=== PATIENT | male | born 1945 | race Caucasian/White ===

== ENCOUNTER 2018-07-13 08:31 | Day surgery (SDC) | payer OTHER ==
[2018-07-10 12:58] VITALS: BMI 20.1
[2018-07-13 09:00] LABS: #Eosinphils 0.3 thou/uL (0.0-0.7); #Lymphocytes 0.6 thou/uL (1.20-3.40); #Monocytes 0.7 thou/uL (0.11-0.59); #Neutrophils 3.3 thou/uL (1.40-6.50); %Basophils 0.9 % (0.0-1.0); %Eosinophils 5.7 % (0.0-10.0); %Lymphocytes 12.5 % (21.0-51.0); %Monocytes 14.4 % (0.0-10.0); %Neutrophils 66.6 % (42.0-75.0); Hemoglobin 15.5 g/dL (14.0-18.0); Mean Corpuscular HGB CONC 34.3 g/dL (32.0-36.0); Mean Corpuscular Hemoglobin 36.5 pg (27.0-31.0); Mean Platelet Volume 7.2 fL (7.4-10.4); Platelet Count 240 thou/uL (130-400); RBC Distribution Width 10.7 % (11.5-14.5); Red Blood Cell (RBC) Count 4.26 mill/uL (4.70-6.10); White Blood Cell (WBC) Count 4.9 thou/uL (4.8-10.8)
[2018-07-13] MEDS ORDERED: Prevnar 13-Val Conj/PF 0.5 ML SYRINGE IM ONE (09:00)
[2018-07-13 09:03] LABS: INR-International Normal Ratio 0.9; PTT 38.9 SEC (22.9-36.1); Prothrombin Time 12.6 SEC (12.0-14.7)
[2018-07-13] MEDS ORDERED: Midazolam HCl 2 mg/2 ml Vial ONE (09:17)
[2018-07-13] MEDS ORDERED: Fentanyl 100 MCG/2 ML VIAL ONE (09:17)
[2018-07-16] MEDS ORDERED: Sodium Bicarbonate 2.5 MEQ/5 ML VIAL ONE (09:56)
[2018-07-16] MEDS ORDERED: Midazolam HCl 2 mg/2 ml Vial ONE (09:56)
[2018-07-16] MEDS ORDERED: Fentanyl 100 MCG/2 ML VIAL ONE (09:56)
== END 2018-07-13 10:30 | disposition home or self-care (01) ==
LOC: CT 08:31
DX: K76.9 Liver disease, unspecified (principal); Z53.9 Procedure and treatment not carried out, unspecified reason
CPT/HCPCS: 36415; 85025; 85610; 85730; J2250; J3010

== ENCOUNTER → 2018-07-16 | Day surgery (SDC) | payer OTHER ==
[2018-07-16 09:48] VITALS: BP 144/84; TEMP 98.1
--- NOTE | 2018-07-16 13:13 | CT ---
CT GUIDED LUNG BIOPSY: CLINICAL HISTORY: Lung mass/lung nodule, left upper lobe. PROCEDURE: Informed consent was obtained from the patient. The patient was escorted to the procedure suite and placed in a supine position. The left upper lobe pulmonary nodule of interest was localized with CT imaging. The patient's ventral left chest was marked and prepped and draped in the standard sterile fashion. Topical anesthesia was achieved. The patient received conscious sedation via the radiology nurse, Lisseth Brennan, and was monitored in stable condition throughout the duration of the exam.. After standard sterile prepping and draping and topical anesthesia was achieved, a small skin incisio n was made at the ventral left chest through which a 20-gauge needle was associated trocar was advanc ed to the leading edge of the nodule. Biopsy was performed which did reveal a core specimen which wa s submitted to pathology. Subsequent to the 1st core biopsy, the pneumothorax did occur which preclu ded additional biopsy attempts of the nodule. Therefore, the needle was removed. The patient was tr ansferred to radiology holding continuously monitored and in stable condition. IMPRESSION: Technically successful percutaneous CT-guided biopsy of left upper lobe pulmonary nodule. Pathology results are pending. POS: [facility]
--- NOTE | 2018-07-16 13:20 | RAD ---
2 VIEW CHEST INSPIRATION/EXPIRATION VIEWS: Date: 07/16/18 CLINICAL HISTORY: Status post left lung biopsy. FINDINGS: There is a small volume left pneumothorax status post left lung biopsy. No shift of midline structure s. IMPRESSION: Small volume left pneumothorax status post left lung biopsy. POS: [facility]
--- NOTE | 2018-07-16 14:23 | RAD ---
TWO VIEW CHEST: (INSPIRATORY AND EXPIRATORY SERIES) CLINICAL HISTORY: Pneumothorax status post left lung biopsy, followup. FINDINGS: There has been slight interval decrease in volume of left-side pneumothorax with a small volume remai mario at the inferolateral left chest. No shift of midline structures. IMPRESSION: Mild residual left pneumothorax is present, which has decreased from the recent exam. POS: [facility]
== END ==
LOC: CT 08:55
PROC: 0BBG3ZX Excision of Left Upper Lung Lobe, Percutaneous Approach, Diagnostic (ICD-10-PCS; principal; 2018-07-16)
DX: R91.1 Solitary pulmonary nodule (principal); I10 Essential (primary) hypertension; J44.9 Chronic obstructive pulmonary disease, unspecified; J31.2 Chronic pharyngitis; Z87.891 Personal history of nicotine dependence; Z88.1 Allergy status to other antibiotic agents
CPT/HCPCS: 32405; 71045; 77012; 88305; 88333